=== PATIENT | female | born 1930 | race Caucasian/White ===

== ENCOUNTER → 2016-06-03 | Outpatient (CLI) | payer MEDICARE ==
[~2016-06-03] MED LIST: APIX2.5T PO; FENT25DI TD; HYDR-3580 PO; LEVO50TA4 PO; PROT40TA PO; SPIR25 PO; TOPR25TA2 PO; ZYRT10TA12 PO
== END ==
LOC: CLAB 14:55
PROVIDERS: ATTEND Internal Medicine
DX: D64.9 Anemia, unspecified (principal); E55.9 Vitamin D deficiency, unspecified
CPT/HCPCS: 36415; 82306; 82607; 82746